=== PATIENT | female | born 1960 | race Caucasian/White ===

== ENCOUNTER 2024-06-21 14:47 | Emergency (ER) | payer MEDICARE, BC ==
[2024-06-21] MEDS: Ketorolac 30 MG/ML SDV IM ONE (17:28)
== END 2024-06-21 18:20 | disposition home or self-care (01) ==
LOC: JP.ED 14:47
DX: M54.50 Low back pain, unspecified (principal); J45.909 Unspecified asthma, uncomplicated; F17.210 Nicotine dependence, cigarettes, uncomplicated; Z79.82 Long term (current) use of aspirin; Z79.899 Other long term (current) drug therapy
CPT/HCPCS: 72100; 96372; 99283; J1885